=== PATIENT | female | born 1980 | race Caucasian/White ===

== ENCOUNTER 2024-07-17 16:13 | Emergency (ER) | payer MEDICAID, SELFPAY ==
[2024-07-17 16:15] VITALS: BP 132/95; PULSE 79; RESP 16; TEMP 36.5; O2SAT 100; BMI 35.6
== END 2024-07-17 18:17 | disposition left against medical advice (07) ==
LOC: ED 18:56
PROVIDERS: PCP Student in an Organized Health Care Education/Training Program
DX: Z53.21 Procedure and treatment not carried out due to patient leaving prior to being seen by health care provider (principal)